=== PATIENT | female | born 2000 | race Two or more races ===

== ENCOUNTER 2022-10-28 03:24 | Emergency (ER) | payer OTHER ==
[~2022-10-28] VITALS: Ht 165.1 cm; Wt 59.0 kg
[2022-10-28] MEDS ORDERED: XYZAL5 MG PO (05:29)
[2022-10-28] MEDS ORDERED: MEDROLPACK PO (05:29)
== END 2022-10-28 05:44 | disposition home or self-care (01) ==
LOC: ER 03:24
DX: L27.2 Dermatitis due to ingested food (principal)